=== PATIENT | male | born 1935 | race Caucasian/White ===

== ENCOUNTER → 2018-09-26 | Outpatient (CLI) | payer MEDICARE, BC ==
[~2018-09-26] MED LIST: AMOXICILLIN/CLA1 TA1 PO; ASPIRIN 32325 MG/TAB PO; BACTRIM DS 8001 TAB PO; CADUET 10 MG-401 TAB PO; CARDENE 20MG CA20 M1 PO; CLONIDINE; COZAAR 25MG25 MG/TAB PO; COZAAR 50MG50 MG/TAB PO; FLOMAX0.4 MG PO; FORTAMET500 MG PO; GLUCOPHAGE500 MG/TAB PO; HCTZ 25MG TAB25 MG PO; HCTZ 25MG25 MG PO; LEVAQUIN 750MG750 MG PO; LIPITOR20 MG PO; LORTAB 5/500 501 TAB PO; LOTREL 5 MG-201 CAP PO; LOTREL 5/20 CAP1 CAP PO
== END ==
LOC: COL.PUL 08:24
DX: R09.02 Hypoxemia (principal)

== ENCOUNTER 2020-09-29 22:34 | Inpatient (IN) | payer MEDICARE ==
[~2020-09-29] VITALS: Ht 167.6 cm; Wt 107.5 kg
[2020-09-29] MEDS ORDERED: AMARYL 2MG T2 MG/TAB PO (22:45)
[2020-09-29] MEDS ORDERED: COREG12.5 MG PO (22:45)
[2020-09-29] MEDS ORDERED: MAGNESIUM500 MG PO (22:46)
[2020-09-29] MEDS ORDERED: ASPIRIN 81M81 MG/TA2 PO (22:46)
[2020-09-29] MEDS ORDERED: FLOMAX 0.40.4 MG/CAP PO (22:46)
[2020-09-29] MEDS ORDERED: MULTIVITAMIN SEN PO (22:47)
[2020-09-29 23:08] LABS: COLLECTION METHOD CLEAN CATCH
[2020-09-29 23:08] LABS: BASO # 0.1 (0.0-0.2); BASO % 0.9 % (0.0-2.0); EOS # 0.1 (0.0-0.7); EOS % 1.1 % (0-4.0); GRAN # 8.1 (1.4-6.5); GRAN % 79.9 % (42.2-75.2); HEMATOCRIT 42.1 % (42.0-52.0); LYMPH % 10.3 % (20.0-51.0); MEAN CELL VOLUME 90 fl (80.0-100.0); MEAN CORPUSCULAR HEMOGLOBIN 30 pg (27.0-31.0); MEAN CORPUSCULAR HGB CONC 33 g/dl (33.0-37.0); MEAN PLATELET VOLUME 10.9 fl (7.4-10.4); MONO # 0.8 (0.1-0.6); MONO % 7.6 % (1.7-9.3); PLATELET COUNT 214 K/mm3 (130-400); RED BLOOD COUNT 4.67 M/mm3 (4.20-5.60); REDCELL DISTRIBUTION WIDTH-CV 14.3 % (11.5-14.5)
[2020-09-29 23:16] LABS: BILIRUBIN,TOTAL 0.9 mg/dL (0.0-1.0); POTASSIUM 4.4 mmol/L (3.4-5.0); TOTAL PROTEIN 7.5 gm/dL (6.4-8.2)
[2020-09-29 23:17] LABS: MUCOUS Present /lpf; PH 5 (5-8); SQUAMOUS EPITHELIAL 0-2 /hpf; URINE APPEARANCE Hazy; URINE BACTERIA None Seen /hpf; URINE BILIRUBIN Negative (NEGATIVE); URINE BLOOD Negative (NEGATIVE); URINE COLOR Yellow; URINE GLUCOSE Negative (NEGATIVE); URINE KETONE 1+ (NEGATIVE); URINE LEUKOCYTE ESTERASE 2+ (NEGATIVE); URINE NITRATE Negative (NEGATIVE); URINE PROTEIN(semi-quant) 1+ (NEGATIVE); URINE UROBILINOGEN Negative (NEGATIVE)
[2020-09-30] VITALS (7 sets, daily range): BP systolic 117–152; BP diastolic 60–70; PULSE 55–77; TEMP 97.4–98.5
[2020-09-30] MEDS ORDERED: COZAAR100 MG PO (01:02)
[2020-09-30] MEDS ORDERED: BUMEX 1MG TA1 MG/TA1 PO (01:03)
[2020-09-30 09:31] LABS: TROPONIN-I < 0.012 ng/mL (0.000-0.035)
--- NOTE | 2020-09-30 18:47 | NUR ---
PT HAD UNEVENTFUL DAY, PT A/OX4, VSS, FLUIDS DC'D. NO INSULIN ADMINISTERED ORDERED. CALL LIGHT WITHIN REACH.
--- NOTE | 2020-09-30 22:35 | NUR ---
MR. Wiggins has been resting well. Pain rated 0/10/ Vss, Will continue to monitor.
[2020-10-01 00:30] VITALS: BP 120/59; PULSE 55; TEMP 97.6
[2020-10-01 04:26] VITALS: BP 118/60; PULSE 54; TEMP 97.5
[2020-10-01 06:47] LABS: BASO # 0.1 (0.0-0.2); BASO % 1.4 % (0.0-2.0); EOS # 0.6 (0.0-0.7); EOS % 6.8 % (0-4.0); GRAN # 5.2 (1.4-6.5); GRAN % 64.2 % (42.2-75.2); HEMATOCRIT 38.1 % (42.0-52.0); HEMOGLOBIN 12.4 g/dl (13.5-18.0); LYMPH # 1.5 (1.2-3.4); LYMPH % 18.3 % (20.0-51.0); MEAN CELL VOLUME 93 fl (80.0-100.0); MEAN CORPUSCULAR HEMOGLOBIN 30 pg (27.0-31.0); MEAN CORPUSCULAR HGB CONC 33 g/dl (33.0-37.0); MEAN PLATELET VOLUME 10.8 fl (7.4-10.4); MONO # 0.7 (0.1-0.6); MONO % 8.9 % (1.7-9.3); PLATELET COUNT 239 K/mm3 (130-400); REDCELL DISTRIBUTION WIDTH-CV 14.4 % (11.5-14.5)
[2020-10-01 06:57] LABS: CALCIUM 8.8 mg/dL (8.4-10.2); CREATININE, serum 1.09 (0.66-1.25); POTASSIUM 3.9 mmol/L (3.4-5.0)
[2020-10-01 08:48] VITALS: BP 129/67; PULSE 57; TEMP 97.7
--- NOTE | 2020-10-01 10:57 | NUR ---
PT TRANSPORTED TO CT VIA MEDICAL STAFF AT 1015 AND RETURNED TO FLOOR VIA CT STAFF AT 1050.
[2020-10-01 12:07] VITALS: BP 127/62; PULSE 59; TEMP 97.6
--- NOTE | 2020-10-01 15:08 | NUR ---
ASA met with the patient and his , Kayla (ph#[phone]), to discuss discharge plan. The patient lives in [place] with his . He reports independence with ADLs before being hospitalized and has a cane. The patient's PCP is Dr. Ron Waddell and he receives his medications from a mail order and [facility]. The patient does not have a DPOA-HC in EMR, but his reports that the patient does have one completed and that it designates her. She states that Dr. Waddell's office may have a copy of it. ASA contacted Dr. Waddell's office and the medart operator reports that they do not have one on file. The patient was having weakness at home and was unable to get out of his chair before coming in. PT/OT have been ordered. ASA discussed post-acute rehab upon discharge. The patient's was interested in SNF and chose 1) [facility] 2) [facility]. ASA contacted and faxed a referral to both facilities. Awaiting screens. The patient has Medicare [employer]. ASA will need to submit for prior-auth and fax the patient's records to [facility] when is gets closer to d/c. *Discharge plan: Referrals out for SNF. Pending insurance approval*
--- NOTE | 2020-10-01 16:36 | NUR ---
Kentrell, at [facility], reports that they are able to accept the patient for a skilled stay.
[2020-10-01 17:00] VITALS: BP 125/65; PULSE 60; TEMP 97.7
--- NOTE | 2020-10-01 18:31 | NUR ---
PT COMPLETED ALL SCHEDULED TESTS TODAY, THIS NURSE REVIEWED POC WITH PT AND FAMILY, PT REMAINS AFEBRILE, A/OX4, 02 ROOM AIR, DENIES PAIN,N/V/D. N/S INFUSING AT 100 ML/HR. PT EXPRESSES NO ADDITIONAL NEEDS AT THIS TIME. CALL LIGHT WITHIN REACH.
[2020-10-01 20:18] VITALS: BP 138/64; PULSE 55; TEMP 97.8
--- NOTE | 2020-10-01 23:32 | NUR ---
pt has been good. Pain rated 0/10. Will continue to monitor.
[2020-10-02 00:10] VITALS: BP 139/60; PULSE 55; TEMP 98
[2020-10-02 06:46] LABS: BASO # 0.1 (0.0-0.2); BASO % 1.7 % (0.0-2.0); EOS # 0.6 (0.0-0.7); EOS % 10.1 % (0-4.0); GRAN # 3.9 (1.4-6.5); HEMATOCRIT 37.2 % (42.0-52.0); HEMOGLOBIN 12.2 g/dl (13.5-18.0); LYMPH # 1.1 (1.2-3.4); LYMPH % 16.8 % (20.0-51.0); MEAN CELL VOLUME 91 fl (80.0-100.0); MEAN CORPUSCULAR HEMOGLOBIN 30 pg (27.0-31.0); MEAN CORPUSCULAR HGB CONC 33 g/dl (33.0-37.0); MONO # 0.6 (0.1-0.6); MONO % 10.1 % (1.7-9.3); PLATELET COUNT 226 K/mm3 (130-400); RED BLOOD COUNT 4.08 M/mm3 (4.20-5.60); REDCELL DISTRIBUTION WIDTH-CV 14.1 % (11.5-14.5)
[2020-10-02 06:51] LABS: CALCIUM 8.3 mg/dL (8.4-10.2); CREATININE, serum 0.92 (0.66-1.25); MAGNESIUM 1.9 mg/dL (1.6-2.3)
[2020-10-02 08:00] VITALS: BP 152/70; PULSE 64; PULSE 65; TEMP 97.7
[2020-10-02 11:30] VITALS: BP 167/75; PULSE 61; TEMP 98.6
--- NOTE | 2020-10-02 11:49 | NUR ---
First visit from the proposal review analyst. No needs right now.
--- NOTE | 2020-10-02 13:46 | NUR ---
Vasiliy, at [facility], reports that they are able to accept the patient, pending [employer] auth.
--- NOTE | 2020-10-02 16:16 | NUR ---
The patient is to tentatively d/c tomorrow. ASA submitted for prior-auth and faxed the patient's records to [facility]. Awaiting auth. ASA notified Vasiliy at [facility].
[2020-10-02 16:22] VITALS: BP 186/75; PULSE 56; TEMP 98.3
[2020-10-02 20:33] VITALS: BP 156/74; PULSE 45; TEMP 97.6
[2020-10-03 00:37] VITALS: BP 161/73; PULSE 55; TEMP 97.6
[2020-10-03 04:31] VITALS: BP 150/76; PULSE 54; TEMP 97.8
[2020-10-03 06:48] LABS: BASO # 0.1 (0.0-0.2); BASO % 1.8 % (0.0-2.0); EOS # 0.6 (0.0-0.7); EOS % 10.9 % (0-4.0); GRAN % 58.9 % (42.2-75.2); HEMATOCRIT 38.2 % (42.0-52.0); HEMOGLOBIN 12.5 g/dl (13.5-18.0); LYMPH # 0.9 (1.2-3.4); LYMPH % 17.9 % (20.0-51.0); MEAN CELL VOLUME 91 fl (80.0-100.0); MEAN CORPUSCULAR HEMOGLOBIN 30 pg (27.0-31.0); MEAN CORPUSCULAR HGB CONC 33 g/dl (33.0-37.0); MEAN PLATELET VOLUME 10.8 fl (7.4-10.4); MONO # 0.5 (0.1-0.6); MONO % 10.1 % (1.7-9.3); PLATELET COUNT 250 K/mm3 (130-400); REDCELL DISTRIBUTION WIDTH-CV 14.1 % (11.5-14.5)
[2020-10-03 06:58] LABS: CALCIUM 8.7 mg/dL (8.4-10.2); CREATININE, serum 1.05 (0.66-1.25); POTASSIUM 4.2 mmol/L (3.4-5.0)
[2020-10-03 07:56] VITALS: BP 159/74; PULSE 58; TEMP 97.6
--- NOTE | 2020-10-03 10:20 | NUR ---
ASA contacted [facility] to follow up on auth. The [facility] reports that they did not receive the patient's information yet. The [facility] built a case for the patient and asked that SW re-fax the patient's information. She provided SW with the Reference#[id number]. ASA re-faxed the patient's information to [facility] with the Ref#.
--- NOTE | 2020-10-03 11:46 | NUR ---
ASA met with the patient, his , and another family member to update. The patient and his are in agreement to going to [facility] for SNF, once [employer] approves. ASA presented and read the IM form outloud to the patient's , Kayla. Kayla verbalized understanding and signed the form. SW provided her with a copy.
[2020-10-03 12:02] VITALS: BP 150/84; PULSE 67; TEMP 97.7
--- NOTE | 2020-10-03 15:03 | NUR ---
SW contacted [facility] to follow up on the auth for SNF. The rep reports that the pre-auth is currently under review.
[2020-10-03 17:14] VITALS: BP 169/91; PULSE 66; TEMP 97.6
--- NOTE | 2020-10-03 19:21 | NUR ---
Patient awake, alert, oriented x 4, able to verbalize all needs, AGDAAGUX, respirations even and unlabored, diminished lung sounds in bases, ambulates in room w/steady gait, encouraged to elevate BRANDT lower ext due to +2pitting edema from knee to foot, no s/s of hypo/hyper glycmeia, telemetry in use.
[2020-10-03 20:49] VITALS: BP 176/76; PULSE 62; TEMP 97.9
[2020-10-04 00:51] VITALS: BP 161/62; PULSE 61; TEMP 97.4
[2020-10-04 03:37] VITALS: BP 126/62; PULSE 63; TEMP 97.8
[2020-10-04 07:12] LABS: BASO # 0.1 (0.0-0.2); EOS # 0.6 (0.0-0.7); EOS % 10.9 % (0-4.0); GRAN # 3.2 (1.4-6.5); HEMATOCRIT 38.4 % (42.0-52.0); HEMOGLOBIN 12.8 g/dl (13.5-18.0); LYMPH # 1.1 (1.2-3.4); LYMPH % 20.4 % (20.0-51.0); MEAN CELL VOLUME 91 fl (80.0-100.0); MEAN CORPUSCULAR HEMOGLOBIN 30 pg (27.0-31.0); MEAN CORPUSCULAR HGB CONC 33 g/dl (33.0-37.0); MEAN PLATELET VOLUME 10.9 fl (7.4-10.4); MONO # 0.5 (0.1-0.6); MONO % 9.3 % (1.7-9.3); PLATELET COUNT 262 K/mm3 (130-400); RED BLOOD COUNT 4.23 M/mm3 (4.20-5.60); REDCELL DISTRIBUTION WIDTH-CV 14.2 % (11.5-14.5)
[2020-10-04 07:14] LABS: CALCIUM 8.7 mg/dL (8.4-10.2); CREATININE, serum 1.09 (0.66-1.25); POTASSIUM 3.8 mmol/L (3.4-5.0)
[2020-10-04 07:39] VITALS: BP 161/85; PULSE 65; TEMP 97.6
--- NOTE | 2020-10-04 08:27 | NUR ---
Pt awake and alert upon entry, sitting in the recliner eating breakfast. No C/O pain at this time. Shift assessments complete, left Pt call light in reach.
--- NOTE | 2020-10-04 11:11 | NUR ---
[employer] contacted ASA and reports that [facility] is requesting a [id number] and the deadline is at 1300 today. ASA notified the clinical team and provided the phone number for the pjqe-ko-awyu to the hospitalist. The hospitalist completed the [id number]. [facility] is denying a SNF stay and is stating that the patient is appropriate to return home with home health. ASA met with the patient, his , and son to discuss the above. The patient's reports that she is comfortable with having the patient return home with her and would like home health. ASA provided her with Medicare.[employer]'s list of home health agencies that serve [place]. The patient's , Kayla, chose [facility]. ASA contacted and faxed a referral to Jon at [facility]. Jon reports that they are able to accept the patient for services. ASA informed the patient and his . The patient is to discharge back home with his today, 10/04, with home health services for fci/PT/OT from [facility]. ASA notified and faxed d/c orders to Jon at [facility]. No additional needs at this time.
[2020-10-04 11:40] VITALS: BP 154/82; PULSE 59; TEMP 97.5
--- NOTE | 2020-10-04 14:19 | NUR ---
Pt discharged to home, discussed discharge information with Pt and spouse, answered questions. PCT escorted Pt to entrance, Pt left with family via private transportation.
== END 2020-10-04 14:21 | disposition home or self-care (01) | DRG 557 ==
LOC: COL.ER 22:34 → MEDICAL 09-30 01:28
PROVIDERS: Internal Medicine; Personal Emergency Response Attendant; Physician Assistant; ADMIT Internal Medicine
DX: M70.21 Olecranon bursitis, right elbow (principal); J18.9 Pneumonia, unspecified organism; N39.0 Urinary tract infection, site not specified; E78.5 Hyperlipidemia, unspecified; E11.9 Type 2 diabetes mellitus without complications; I11.0 Hypertensive heart disease with heart failure; I50.9 Heart failure, unspecified; M19.90 Unspecified osteoarthritis, unspecified site; N40.0 Benign prostatic hyperplasia without lower urinary tract symptoms; R09.02 Hypoxemia; R53.81 Other malaise; G47.30 Sleep apnea, unspecified; I27.20 Pulmonary hypertension, unspecified; Z20.822 Contact with and (suspected) exposure to COVID-19; Z96.643 Presence of artificial hip joint, bilateral; Z99.81 Dependence on supplemental oxygen; Z88.1 Allergy status to other antibiotic agents; Z79.82 Long term (current) use of aspirin; Z79.84 Long term (current) use of oral hypoglycemic drugs
CPT/HCPCS: 99222-AI; 99232-AI; 99233-AI; 99239; J0456; J0696; J1650; J2405; J7030; J7050; Q9967

== ENCOUNTER 2021-07-04 15:43 | Emergency (ER) | payer MEDICARE ==
[~2021-07-04] VITALS: Ht 167.6 cm; Wt 105.0 kg
[~2021-07-04 15:43] MED LIST changes: +AMARYL 2MG T2 MG/TAB PO; +ASPIRIN 81M81 MG/TA2 PO; +BUMEX 1MG TA1 MG/TA1 PO; +COREG12.5 MG PO; +COZAAR100 MG PO; +FLOMAX 0.40.4 MG/CAP PO; +MAGNESIUM500 MG PO; +MULTIVITAMIN SEN PO
[2021-07-04 16:02] VITALS: TEMP 97.2
[2021-07-04 16:46] LABS: ALBUMIN 3.6 gm/dL (3.4-4.8); BILIRUBIN,TOTAL 0.8 mg/dL (0.2-1.2); CALCIUM 9.3 mg/dL (8.4-10.2); CREATININE, serum 1.15 mg/dL (0.72-1.25); TOTAL PROTEIN 7.2 gm/dL (6.2-8.1)
[2021-07-04 16:53] LABS: BASO # 0.1 K/mm3 (0.0-0.2); EOS # 0.4 K/mm3 (0.0-0.7); GRAN # 5.1 K/mm3 (1.4-6.5); GRAN % 64.3 % (42.2-75.2); HEMATOCRIT 43.5 % (42.0-52.0); HEMOGLOBIN 14.6 g/dl (13.5-18.0); LYMPH # 1.6 K/mm3 (1.2-3.4); MEAN CELL VOLUME 89 fl (80.0-100.0); MEAN CORPUSCULAR HEMOGLOBIN 30 pg (27-31); MEAN CORPUSCULAR HGB CONC 34 g/dl (33.0-37.0); MEAN PLATELET VOLUME 11.3 fl (7.4-10.4); MONO # 0.8 K/mm3 (0.1-0.6); MONO % 9.4 % (1.7-9.3); PLATELET COUNT 244 K/mm3 (130-400); RED BLOOD COUNT 4.89 M/mm3 (4.20-5.60); REDCELL DISTRIBUTION WIDTH-CV 13.4 % (11.5-14.5)
[2021-07-04 19:07] VITALS: BP 136/63; PULSE 63
== END 2021-07-04 19:07 | disposition home or self-care (01) ==
LOC: COL.ER 15:43
PROVIDERS: Emergency Medicine
DX: S20.212A Contusion of left front wall of thorax, initial encounter (principal); S00.91XA Abrasion of unspecified part of head, initial encounter; S80.212A Abrasion, left knee, initial encounter; I11.0 Hypertensive heart disease with heart failure; I50.9 Heart failure, unspecified; Z79.82 Long term (current) use of aspirin; W18.30XA Fall on same level, unspecified, initial encounter
CPT/HCPCS: A9284; J1885; J7040; Q9967

== ENCOUNTER → 2023-04-26 | Outpatient (CLI) | payer MEDICARE ==
[~2023-04-26] MED LIST changes: +AMOXICILLIN 8751 TAB PO; +CVS SPECTRAVIT1 EA15 PO; +Iohexol 300 - 100 ML VIAL IV ONE; -MULTIVITAMIN SEN PO; +NAPROSYN 2250 MG/TAB PO; +NS 100 ML IV SCH; +PROTONIX 40MG T40 MG PO
== END ==
LOC: COL.RAD 09:10
DX: J90 Pleural effusion, not elsewhere classified (principal); Z87.01 Personal history of pneumonia (recurrent)
CPT/HCPCS: Q9967